=== PATIENT | male | born 1960 | race Caucasian/White ===

== ENCOUNTER → 2019-10-07 11:40 | Outpatient (CLI) | payer OTHER | END | disposition home or self-care (01) | LOC: EKG 11:40 | PROVIDERS: ATTEND Urology | DX: Z01.811 Encounter for preprocedural respiratory examination (principal) ==

== ENCOUNTER 2019-10-30 05:40 | Day surgery (SDC) | payer OTHER | END 2019-10-30 14:05 | disposition home or self-care (01) | LOC: CIR.AMB 05:40 | PROVIDERS: ATTEND Urology | DX: N43.2 Other hydrocele (principal); N43.41 Spermatocele of epididymis, single ==

== ENCOUNTER 2020-08-26 14:46 | Outpatient (CLI) | payer OTHER | END 2020-08-26 15:02 | disposition home or self-care (01) | LOC: RAD 14:46 | PROVIDERS: ATTEND Physical Medicine & Rehabilitation | DX: M25.511 Pain in right shoulder (principal) ==

== ENCOUNTER 2020-09-16 13:59 | Outpatient (CLI) | payer OTHER | END 2020-09-16 14:18 | disposition home or self-care (01) | LOC: SONOGRAMA 13:59 | PROVIDERS: ATTEND Physical Medicine & Rehabilitation | DX: M25.511 Pain in right shoulder (principal) ==